=== PATIENT | male | born 2000 | race Caucasian/White ===

== ENCOUNTER 2023-09-12 02:59 | Observation (INO) ==
--- NOTE | 2023-09-12 03:08 | Emergency Department Note ---
History of Present Illness General Chief complaint: Abdominal Pain Stated complaint: SEVERE ABDOMINAL PAIN,VOMITING Time Seen by Provider: 09/12/23 03:01 History of Present Illness Maximum Pain Intensity: 6 This 23-year-old male presents ER complaint of nausea vomiting diarrhea and severe abdominal pain since 9 PM last night. Patient denies chest pain, dyspnea, fever, chills, cough, ingestion, flulike illness. He is not sure if he ate something bad. No other sick contacts. He states he is healthy with no active medical problems. Past Med/Surg History Social History Smoking Status: Never smoker Preferred Language: Lao Feels Safe at Home: Yes Review of Systems A total of 10 systems reviewed and were otherwise negative Physical Exam Vital Signs Vital Signs - 24 hr 09/12/23 03:03 09/12/23 04:00 09/12/23 05:24 Temperature 36.5 C Temperature Source Temporal Artery Scan Pulse Rate 104 H Pulse Rate [Finger] 73 89 Respiratory Rate 17 18 17 Respiratory Depth Normal Blood Pressure 128/77 Blood Pressure [Left Arm] 120/73 114/54 L Blood Pressure Mean 94 Blood Pressure Mean [Left Arm] 88 74 Pulse Oximetry 98 97 96 Oxygen Delivery Method Room Air Sepsis Recent Fever Within 48 Hours No Sepsis New/Unexplained Change in Mental Status No Sepsis Action Taken by Nursing No Action Required VITALS: Vitals are noted on the nurse's note and reviewed by myself. Vital signs stable. GENERAL: Pleasant gentleman ambulating without difficulties, in no acute distress, nondiaphoretic, well-developed well-nourished. SKIN: Capillary reflex less than 2 seconds. HEENT: Normocephalic. PERRLA. EOMI. Nares patent. Mucous membranes moist. Neck is supple without nuchal rigidity. HEART: Regular rate and rhythm LUNGS: Clear to auscultation bilaterally without wheezes, rales or rhonchi. No retractions or accessory muscle use. ABDOMEN: Positive bowel sounds x 4. Normal tympanic percussion. Soft, tender mid abdomen, without masses or organomegaly. Flor sign negative. No guarding or rebound tenderness. no CVA tenderness MUSCULOSKELETAL: No gross musculoskeletal defects. NEURO: Patient was alert and oriented to person place and time. No focal neurological deficits. Course Administered Medications Discontinued Medications Dicyclomine HCl (Dicyclomine Hcl 10 Mg/Ml 2 Ml Amp/Vial) 20 mg IM NOW ONE Stop: 09/12/23 03:07 Last Admin: 09/12/23 03:30 Dose: Not Given Documented By: WANDA Sodium Chloride (Nss) 1,000 mls @ 999 mls/hr IV .Q1H1M STA Stop: 09/12/23 04:01 Last Infusion: 09/12/23 05:12 Dose: Infused Documented By: Admin: 09/12/23 03:19 Dose: 999 mls/hr Documented By: WANDA Famotidine (Pepcid 20mg Iv Push) 20 mg in 5 mls @ 2.5 mls/min IV NOW STA Stop: 09/12/23 03:02 Last Admin: 09/12/23 03:17 Dose: 2.5 mls/min Documented By: WANDA Ioversol (Optiray 320 100ml) 100 ml IV ONCE ONE Stop: 09/12/23 03:57 Last Admin: 09/12/23 03:57 Dose: 90 ml Documented By: JONNA Ondansetron HCl (Ondansetron Inj 2 Mg/Ml 2 Ml Vial) 4 mg IV NOW STA Stop: 09/12/23 03:02 Last Admin: 09/12/23 03:18 Dose: 4 mg Documented By: WANDA Medical Decision Making Medical Records Attestation: I reviewed the patient's medical records. Home Medications Current Medication List: was personally reviewed by me Laboratory Data Attestation: I reviewed the patient's lab results. 09/12/23 03:14 09/12/23 03:14 Lab Results 09/12/23 09/12/23 Range/Units 03:14 03:20 WBC 26.88 H (4.8-10.8) K/ul RBC 5.86 (4.70-6.10) M/uL Hgb 17.4 (14.0-18.0) g/dl POC Hgb 18.4 H (14.0-18.0) g/dl Hct 50.3 (42.0-52.0) % POC Hct 54 H (42-52) % MCV 85.8 (80.0-100.0) fL MCH 29.7 (25.0-34.0) pg MCHC 34.6 (32.0-36.0) g/dL RDW Std Deviation 38.5 (36.4-46.3) fL RDW Coeff of Harjinder 12.2 (11.5-14.5) % Plt Count 194 (130-400) K/uL MPV 10.7 (9.4-12.4) fL Immature Gran % (Auto) 0.5 % Neut % (Auto) 94.5 % Lymph % (Auto) 1.1 % [place] % (Auto) 3.5 % Eos % (Auto) 0.1 % Baso % (Auto) 0.3 % Neut # (Auto) 25.42 H (1.40-6.50) K/uL Lymph # (Auto) 0.29 L (1.20-3.40) K/uL [place] # (Auto) 0.93 H (0.11-0.59) K/uL Eos # (Auto) 0.03 (0.00-0.50) K/uL Baso # (Auto) 0.08 (0.00-0.20) K/uL Immature Gran # (Auto) 0.13 (0.01-0.20) K/uL Toxic Vacuolation 1+ POC Sodium 140 (135-144) mmol/L Sodium 137 (136-145) mmol/L POC Potassium 4.0 (3.3-5.0) mmol/L Potassium 4.0 (3.5-5.1) mmol/L POC Chloride 98 L (101-112) mmol/L Chloride 98 (98-107) mmol/L Carbon Dioxide 28 (21-32) mmol/L POC Total CO2 29 (24-31) mmol/L Anion Gap 11 (3-11) POC Anion Gap 18.0 (16-25) mmol/L POC BUN 21 H (7-18) mg/dl BUN 21 (6-23) mg/dl Creatinine 1.18 (0.6-1.4) mg/dl POC Creatinine 1.1 (0.6-1.3) mg/dl Est Cr Clr Drug Dosing 66.9 ml/min Est GFR ( Amer) 99.5 ml/min Est GFR (Non-Af Amer) 85.9 ml/min BUN/Creatinine Ratio 17.8 (10-20) Glucose 144 H (70-99(Fasting)) mg/dl POC Glucose (other) 148 H (70-99) mg/dl Calcium 11.2 H (8.6-10.3) mg/dl POC Ioniz Calcium Jean Carlos 1.19 (1.12-1.32) mmol/l Total Bilirubin 1.2 H (0.2-1.0) mg/dl AST 32 (13-39) U/L ALT 23 (7-52) U/L Alkaline Phosphatase 128 H (34-104) U/L Total Protein 9.2 H (6.0-8.3) gm/dl Albumin 5.8 H (3.4-5.0) gm/dl Globulin 3.4 (2.5-4.0) gm/dl Albumin/Globulin Ratio 1.7 (0.9-2) Lipase 13 (11-82) U/L Adenovirus (PCR) Not Detected (NotDetected) B. pertussis DNA (PCR) Not Detected (NotDetected) B.parapertussis DNA PCR Not Detected (NotDetected) C. pneumoniae DNA (PCR) Not Detected (NotDetected) Coronavirus OC43 (PCR) Not Detected (NotDetected) Coronavirus HKU1 (PCR) Not Detected (NotDetected) Coronavirus 229E (PCR) Not Detected (NotDetected) SARS-CoV-2 (PCR) Not Detected (NotDetected) Coronavirus NL63 (PCR) Not Detected (NotDetected) Human Metapneumovir PCR Not Detected (NotDetected) Influenza Type A (PCR) Not Detected (NotDetected) Influenza Type B (PCR) Not Detected (NotDetected) M. pneumoniae (PCR) Not Detected (NotDetected) Parainfluenza 1 (PCR) Not Detected (NotDetected) Parainfluenza 2 (PCR) Not Detected (NotDetected) Parainfluenza 3 (PCR) Not Detected (NotDetected) Parainfluenza 4 (PCR) Not Detected (NotDetected) RSV (PCR) Not Detected (NotDetected) Entero/Rhino (PCR) Not Detected (NotDetected) Imaging Data Attestation: I personally reviewed and interpreted this imaging study as follows: Radiologist's Impression: Abdomen/Pelvis CT 09/12/23 03:01 Exam(s): CT ABDOMEN + PELVIS With Contrast IV Amt: 90 ML OPTIRAY 320 EXAM: CT Abdomen and Pelvis With Intravenous Contrast CLINICAL HISTORY: severe mid pain. TECHNIQUE: Axial computed tomography images of the abdomen and pelvis with intravenous contrast. CTDI is 6.58 mGy and DLP is 302.19 mGy-cm. Automated exposure control was utilized for the study. A dose lowering technique was utilized adhering to the principles of ALARA. CONTRAST: Patient received 90 ML OPTIRAY 320 of IV contrast COMPARISON: No relevant prior studies available. FINDINGS: Lung bases: Unremarkable. No mass. No consolidation. ABDOMEN: Liver: Unremarkable. No mass. Gallbladder and bile ducts: Unremarkable. No calcified stones. No ductal dilation. Pancreas: Unremarkable. No mass. No ductal dilation. Spleen: Unremarkable. No splenomegaly. Adrenals: Unremarkable. No mass. Kidneys and ureters: Unremarkable. No solid mass. No hydronephrosis. Stomach and bowel: Stomach is only mildly distended with fluid and gas. No gastric mucosal thickening. There is no definitive evidence for focal high-grade bowel obstruction with nonspecific fluid-filled, but not distended small bowel loops in the pelvis. No asymmetric bowel mucosal abnormality identified. No definite diverticulitis. PELVIS: Appendix: The appendix is suggested extending inferiorly and anteriorly from the cecum in the right anterior pelvis. The appendiceal tip is borderline prominent, measuring 7.8 mm in diameter with some internal material and gas. No mucosal wall thickening. The remainder of the appendix is normal in caliber with scattered gas. No definite periappendiceal fat stranding. Bladder: Unremarkable. No mass. Reproductive: Unremarkable as visualized. ABDOMEN and PELVIS: Intraperitoneal space: Unremarkable. No free air. No significant fluid collection. Bones/joints: No acute fracture. No dislocation. Soft tissues: Unremarkable. Vasculature: Unremarkable. No abdominal aortic aneurysm. Lymph nodes: Unremarkable. No enlarged lymph nodes. IMPRESSION: 1. There is no definitive evidence for focal high-grade bowel obstruction with nonspecific fluid-filled, but not distended small bowel loops in the pelvis. Suspect normal variation. No asymmetric bowel mucosal abnormality identified. No definite diverticulitis. No free intraperitoneal fluid or pneumoperitoneum. 2. The appendix is suggested extending inferiorly and anteriorly from the cecum in the right anterior pelvis. The appendiceal tip is borderline prominent, measuring 7.8 mm in diameter with some internal material and gas. No mucosal wall thickening. The remainder of the appendix is normal in caliber with scattered gas. No definite periappendiceal fat stranding. Suspect normal variation. However, please correlate with clinical and laboratory findings. Electronically signed by: Sumanth Catalan MD 09/12/23 05:04 AM [facility] Narrative Prior records/ancillary studies reviewed. Triage Nursing notes reviewed. Additional history obtained from nursing The patient's history was concerning for nausea, vomiting, diarrhea, and abdominal pain. Differential diagnosis: Etiologies such as gastroenteritis, food borne illness, infections, appendicitis, diverticulitis, inflammatory bowel disease, obstruction, GI bleed, biliary pathology, as well as others were entertained. Physical examination findings: As above. Abdominal examination revealed mid abdominal tenderness. Vital signs reviewed and revealed stable. ER treatment provided: IV hydration 1 L NSS. Zofran Bentyl and Pepcid were ordered On reassessment the patient felt better. Patient was tolerating p.o. intake. Diagnostics interpretation by me: The labs Independently Interpreted by myself revealed leukocytosis, mild hyperglycemia without DKA Imaging studies: CT as above Consultation: Surgery was consulted and did evaluate the patient. They would like to admit him for observation for possible appendicitis. This appears to be consistent with vomiting and diarrhea with concerns for possible appendicitis on imaging. Patient was feeling better. Surgery was consulted and did evaluate the patient. Surgery will admit the patient for observation but think the patient less likely has a appendicitis and more likely a GI illness. They did ask today and stool cultures and C. difficile study. These were added. Patient is agreeableof the treatment plan of admission. Patient was admitted to the surgical service. By the evaluation outlined above emergent etiologies such as diverticulitis, obstruction, cardiac sources, mesenteric ischemia, aortic pathology, inflammatory bowel disease, renal colic, PUD, biliary pathology, UTI, as well as others were deemed relatively unlikely. The pt informed about the findings as listed above. All questions were answered and pleased with the treatment. The chart was completed utilizing [employer] voice recognition software. Grammatical errors, random word insertions, pronoun errors, and incomplete sentences are an occassional consequence of this system due to software limitations, ambient noise, and hardware issues. Any formal questions or concerns about the content, text, or information contained within the body of this dictation should be directly addressed to the physician assistant wrestling coach for clarification. Impression & Plan Nausea, vomiting and diarrhea, Abdominal pain, acute, Leukocytosis Discharge Plan Visit Data Chief Complaint: Abdominal Pain Stated Complaint: SEVERE ABDOMINAL PAIN,VOMITING ED Provider: Ellen Valdez ED Midlevel Provider: Digna Wyatt Discharge Problem: Nausea, vomiting and diarrhea, Abdominal pain, acute, Leukocytosis Patient Disposition: Being Evaluated by Surgeon Condition: Good Discharge Instructions Activity Restrictions/Additional Instructions: Forms Stand Alone Forms: Work/School Release (ED), Important Visit Information Referrals Referrals: PCP,NO [Primary Care Provider] -
[2023-09-12] MEDS: FAMOTIDINE 20MG IV PUSH 20 MG/5 ML SYR IV STA (03:17)
[2023-09-12] MEDS: ONDANSETRON INJ 2 MG/ML 2 ML VIAL IV STA (03:18)
[2023-09-12] MEDS: SODIUM CHLORIDE 0.9% 1,000 ML IV STA (03:19)
[2023-09-12] MEDS: DICYCLOMINE HCL 10 MG/ML 2 ML AMP/VIAL IM ONE (03:22)
[2023-09-12 03:35] LABS: iSTAT Creatinine 1.1 mg/dl (0.6-1.3); iSTAT Hemoglobin 18.4 g/dl (14.0-18.0); iSTAT Ionized Calcium 1.19 mmol/l (1.12-1.32)
[2023-09-12 03:40] LABS: Hematocrit (blood only) 50.3 % (42.0-52.0); Hemoglobin 17.4 g/dl (14.0-18.0); Mean Corpuscular Hemoglobin 29.7 pg (25.0-34.0); Mean Corpuscular Hgb Conc 34.6 g/dL (32.0-36.0); Mean Corpuscular Volume 85.8 fL (80.0-100.0); Mean Platelet Volume 10.7 fL (9.4-12.4); Platelet Count 194 K/uL (130-400); RDW Coefficient of Variation 12.2 % (11.5-14.5); RDW Standard Deviation 38.5 fL (36.4-46.3); Red Blood Count 5.86 M/uL (4.70-6.10); White Blood Count 26.88 K/ul (4.8-10.8)
[2023-09-12 03:44] LABS: Albumin Globulin Ratio 1.7 (0.9-2); Albumin Level 5.8 gm/dl (3.4-5.0); BUN Creatinine Ratio 17.8 (10-20); Bilirubin,Total 1.2 mg/dl (0.2-1.0); Calcium 11.2 mg/dl (8.6-10.3); Creatinine Clr Calc Pharmacy 66.9 ml/min; Est GFR (African American) 99.5 ml/min; Est GFR (Non-African American) 85.9 ml/min; Globulin 3.4 gm/dl (2.5-4.0); Total Protein 9.2 gm/dl (6.0-8.3)
[2023-09-12] MEDS: OPTIRAY 320 100ml IV ONE (03:57)
[2023-09-12 03:59] LABS: Basophils # (auto) 0.08 K/uL (0.00-0.20); Basophils % (auto) 0.3 %; Eosinophils # (auto) 0.03 K/uL (0.00-0.50); Eosinophils % (auto) 0.1 %; Immature Granulocytes # (auto) 0.13 K/uL (0.01-0.20); Immature Granulocytes % (auto) 0.5 %; Lymphocytes # (auto) 0.29 K/uL (1.20-3.40); Lymphocytes % (auto) 1.1 %; Monocytes # (auto) 0.93 K/uL (0.11-0.59); Monocytes % (auto) 3.5 %; Neutrophils # (auto) 25.42 K/uL (1.40-6.50); Neutrophils % (auto) 94.5 %; Toxic Vacuolation 1+
[2023-09-12 04:30] LABS: Adenovirus PCR Not Detected (NotDetected); Bordetella parapertussis PCR Not Detected (NotDetected); Bordetella pertussis PCR Not Detected (NotDetected); Chlamydia pneumoniae PCR Not Detected (NotDetected); Coronavirus 229E PCR Not Detected (NotDetected); Coronavirus CoV-2 (COVID19)PCR Not Detected (NotDetected); Coronavirus HKU1 PCR Not Detected (NotDetected); Coronavirus NL63 PCR Not Detected (NotDetected); Coronavirus OC43PCR Not Detected (NotDetected); Human Metapneumovirus PCR Not Detected (NotDetected); Influenza A PCR Not Detected (NotDetected); Influenza B PCR Not Detected (NotDetected); Mycoplasma pneumoniae PCR Not Detected (NotDetected); Parainfluenza Virus 1 PCR Not Detected (NotDetected); Parainfluenza Virus 2 PCR Not Detected (NotDetected); Parainfluenza Virus 3 PCR Not Detected (NotDetected); Parainfluenza Virus 4 PCR Not Detected (NotDetected); Respiratory Syncytial VirusPCR Not Detected (NotDetected); Rhinovirus/Enterovirus PCR Not Detected (NotDetected)
--- NOTE | 2023-09-12 05:04 | CT Scan Report ---
Exam(s): CT ABDOMEN + PELVIS With Contrast IV Amt: 90 ML OPTIRAY 320 EXAM: CT Abdomen and Pelvis With Intravenous Contrast CLINICAL HISTORY: severe mid pain. TECHNIQUE: Axial computed tomography images of the abdomen and pelvis with intravenous contrast. CTDI is 6.58 mGy and DLP is 302.19 mGy-cm. Automated exposure control was utilized for the study. A dose lowering technique was utilized adhering to the principles of ALARA. CONTRAST: Patient received 90 ML OPTIRAY 320 of IV contrast COMPARISON: No relevant prior studies available. FINDINGS: Lung bases: Unremarkable. No mass. No consolidation. ABDOMEN: Liver: Unremarkable. No mass. Gallbladder and bile ducts: Unremarkable. No calcified stones. No ductal dilation. Pancreas: Unremarkable. No mass. No ductal dilation. Spleen: Unremarkable. No splenomegaly. Adrenals: Unremarkable. No mass. Kidneys and ureters: Unremarkable. No solid mass. No hydronephrosis. Stomach and bowel: Stomach is only mildly distended with fluid and gas. No gastric mucosal thickening. There is no definitive evidence for focal high-grade bowel obstruction with nonspecific fluid-filled, but not distended small bowel loops in the pelvis. No asymmetric bowel mucosal abnormality identified. No definite diverticulitis. PELVIS: Appendix: The appendix is suggested extending inferiorly and anteriorly from the cecum in the right anterior pelvis. The appendiceal tip is borderline prominent, measuring 7.8 mm in diameter with some internal material and gas. No mucosal wall thickening. The remainder of the appendix is normal in caliber with scattered gas. No definite periappendiceal fat stranding. Bladder: Unremarkable. No mass. Reproductive: Unremarkable as visualized. ABDOMEN and PELVIS: Intraperitoneal space: Unremarkable. No free air. No significant fluid collection. Bones/joints: No acute fracture. No dislocation. Soft tissues: Unremarkable. Vasculature: Unremarkable. No abdominal aortic aneurysm. Lymph nodes: Unremarkable. No enlarged lymph nodes. IMPRESSION: 1. There is no definitive evidence for focal high-grade bowel obstruction with nonspecific fluid-filled, but not distended small bowel loops in the pelvis. Suspect normal variation. No asymmetric bowel mucosal abnormality identified. No definite diverticulitis. No free intraperitoneal fluid or pneumoperitoneum. 2. The appendix is suggested extending inferiorly and anteriorly from the cecum in the right anterior pelvis. The appendiceal tip is borderline prominent, measuring 7.8 mm in diameter with some internal material and gas. No mucosal wall thickening. The remainder of the appendix is normal in caliber with scattered gas. No definite periappendiceal fat stranding. Suspect normal variation. However, please correlate with clinical and laboratory findings. Electronically signed by: Sumanth Catalan MD 09/12/23 05:04 AM
[2023-09-12] MEDS ORDERED: ONDANSETRON INJ 2 MG/ML 2 ML VIAL IV PRN (05:36)
--- NOTE | 2023-09-12 05:36 | History & Physical Report ---
Date of Service September 12, 2023 Assessment & Plan (1) Abdominal pain, acute: Plan: I discussed with the treating clinician the emergency department and the patient will be admitted/observed on the surgical service proceeding as follows: At the present time the patient does not have any abdominal pain and is only received Bentyl, Pepcid, and Zofran for symptomatic reliefhe has not required any other analgesics and his pain has all but resolved and his abdominal exam is benign Clinically, I suspect the patient merely has gastroenteritis which accounts for his previous abdominal pain along with his nausea, vomiting, and diarrhea However, due to the patient's leukocytosis and appendiceal findings on CT scan I feel it is in the best interest of the patient to observe him in the hospital for several hours to ensure he does not declare himself as an acute appendicitis N.p.o. status will be implemented IV fluids will be provided for hydration As there is no definite appendicitis we will withhold antibiotics at this time Will repeat labs later this morning Due to the patient's noted diarrhea we will order stool studies and act accordingly Antiemetics will be ordered Analgesics to be used sparingly as we do not want to mask any underlying pathology Will use SCDs for DVT prevention, no chemical means until it is ascertained whether or not the patient will require any procedural/surgical intervention He will be a level 1 full code History of Present Illness Chief Complaint: Abdominal pain Primary Care Provider: NO PCP This is a 23-year-old male who presented the emergency department secondary to abdominal pain that he has been having since approximately 9:30 PM on 09/10/2023. Patient notes that the pain is located just superior to his umbilicus/epigastric area. He notes that the pain is not radiating. He does note the pain was worse with certain movements and feels somewhat better when he was lying still. He had associated nausea and vomiting. He denies any fevers, shakes, or chills. The patient says he did eat a very large Easter dinner yesterday but no close contacts are ill with similar symptoms. He has never had prior abdominal surgeries before and denies any additional medical problems. Since arrival to hospital patient has had labs and imaging which independent reviewed. A CT scan of the abdomen pelvis showed no evidence of small bowel obstruction. The patient was noted to have a mildly distended stomach with fluid and gas and no gastric mucosal thickening. The appendix was noted to be extending inferiorly and anterior from the cecum in the right anterior pelvis. The appendiceal tip was noted to be borderline prominent measuring 7.8 cm with s ome internal material and gas and no mucosal wall thickening. The remainder the appendix appeared normal and there is no definite periappendiceal fat stranding and no definite appendicitis. Labs include a CBC her white blood cell count was elevated at 26.8. Hemoglobin was normal on hematocrit was normal as well. Platelet count was normal. Chemistry profile showed sodium and potassium were normal. His BUN and creatinine were both normal as well. The patient did have a bio fire checked and all viruses checked for were negative. In the emergency department the patient has received Bentyl for his abdominal discomfort. He is also received a dose of Zofran and Pepcid and his pain is markedly improved. Concerning past medical history he denies any medical problems Concerning past surgical history has never had surgery Concerning social history he does not smoke Past Med/Surg History Social History Smoking Status: Never smoker Hx Alcohol Use: Yes Hx Substance Use: No Preferred Language: Kazakh Communication Ability: Effective Sliver Machine Operator Required: No Beliefs That Will Affect Care: None Current Living Situation: Other Current Living Situation Comment: Roommates Other Information That Helps Us Care for You: No Feels Safe at Home: Yes Safety Concerns: Feels Safe At This Time Assistive Devices: None Review of Systems Constitutional: no fever and no chills Ear, Nose, Mouth, Throat: no hearing loss Respiratory: no cough and no dyspnea Cardiovascular: no chest pain Gastrointestinal: as per Subjective / HPI, + abdominal pain, + nausea, + vomiting and + diarrhea/loose stools Genitourinary: no dysuria Musculoskeletal: no back pain Integumentary: no rash Neurologic: no localized weakness Physical Exam Constitutional: WD/WN, vitals as above Eyes: no conjunctival abnormality ENMT: Ears: no external ear abnormality Neck: trachea midline Respiratory: normal respiratory effort; no respiratory distress and no labored breathing Cardiovascular: Rate/Rhythm: regular rate and regular rhythm Gastrointestinal (Abdomen): At the time of my exam the patient's abdomen is noted to be soft and nondistended. Bowel sounds are present. There is no tympany to percussion. At the time of my exam there is no pain noted with palpation in the epigastric area or any other area of his abdomen, specifically the right lower quadrant. There is no rebound tenderness or guarding Musculoskeletal: No calf tenderness Skin: no rashes Neurologic: moves all extremities Psychiatric: A+Ox3, euthymic affect Results & Data Results & Data Vital Signs (Past 12 Hours) Vital Signs Temp Pulse Pulse Resp BP BP Pulse Ox 09/12/23 05:24 89 17 114/54 L 96 09/12/23 04:00 73 18 120/73 97 09/12/23 03:03 36.5 C 104 H 17 128/77 98 O2 Del Method 09/12/23 05:24 09/12/23 04:00 09/12/23 03:03 Room Air Supervising Physician Co-Signing Physician Notes This case was discussed with the surgical PA. I agree with the assessment. PG Care Time/CCT Total # of Minutes Spent Total Time Spent with Patient: Total time spent is greater than 50% in coordination of care (as documented) at patient's floor/unit and/or counseling patient: Coding Level of Care Code 66647 INT INP/OBS CARE 3/75MIN Diagnoses Abdominal pain, acute R10.9
[2023-09-12 06:10] LABS: Appearance Urine Clear (Clear); Bacteria Urine Automated Negative (Negative); Bilirubin Urine Negative (Negative); Blood Urine Trace (Negative); Cast Urine Automated 0 /lpf (0-5); Color Urine Yellow; Glucose Urine UA Negative (Negative); Ketones Urine Negative (Negative); Leukocyte Esterase Urine Negative (Negative); Nitrite Urine Negative (Negative); Protein Urine Negative (Negative); RBC Urine Automated 0-4 /hpf (0-4); Specific Gravity Urine > 1.045 (1.000-1.030); Urobilinogen Urine Negative (Negative); WBC Urine Automated 0 /hpf (0-5); pH Urine 7.5 (4.5-7.5)
[2023-09-12] MEDS: SODIUM CHLORIDE 0.9% 1,000 ML IV SCH (06:17)
--- NOTE | 2023-09-12 09:32 | Surgery Progress Note ---
Date of Service September 12, 2023 Assessment & Plan (1) Nausea, vomiting and diarrhea: Plan: Pt here with abdominal pain, nausea/vomiting and diarrhea All symptoms are improved this AM and he is feeling well On exam abdomen is soft, non distended, and non tender. No RLQ ttp appreciated Will recheck labs at 3pm to see if WBC downtrending off abx Adv diet to full liquids and see how he fairs If diet tolerated, he continues to remain symptom free, and labs okay will consider dispo later today Plan I examined this patient with the surgical PA and I agree with the assessment. He was admitted with IV fluids, no antibiotics were started and the patient's symptoms have completely resolved. We will follow-up labs this afternoon to see if he will be appropriate for discharge. Admission and Anticipated Discharge Date Admission Date: September 12, 2023 Subjective Patient reports pain is much improved. No further nausea/vomiting. Diarrhea also improved. Physical Exam Physical Exam: awake/alert, no distress Gastrointestinal (Abdomen): Inspection/Auscultation: abdomen not distended Percussion/Palpation: abdomen soft; abdomen nontender Results & Data Vital Signs (Past 12 Hours) Vital Signs Temp Pulse Pulse Resp BP BP BP 09/12/23 07:17 99.0 F 98 H 16 114/65 09/12/23 06:40 83 18 94/56 L 09/12/23 05:57 81 17 98/61 L 09/12/23 05:24 89 17 114/54 L 09/12/23 04:00 73 18 120/73 09/12/23 03:03 97.7 F 104 H 17 128/77 Pulse Ox O2 Del Method 09/12/23 07:17 93 Room Air 09/12/23 06:40 97 09/12/23 05:57 96 09/12/23 05:24 96 09/12/23 04:00 97 09/12/23 03:03 98 Room Air PG Care Time/CCT Total # of Minutes Spent Total Time Spent with Patient: Total time spent is greater than 50% in coordination of care (as documented) at patient's floor/unit and/or counseling patient: Coding Level of Care Code 48916 SUB INP/OBS CARE 1/25MIN Diagnoses Nausea, vomiting and diarrhea R11.2; R19.7
[2023-09-12 15:18] LABS: BUN Creatinine Ratio 15.5 (10-20); Calcium 8.4 mg/dl (8.6-10.3); Creatinine Clr Calc Pharmacy 81.4 ml/min; Est GFR (African American) 126.1 ml/min; Est GFR (Non-African American) 108.8 ml/min; Potassium 3.6 mmol/L (3.5-5.1)
[2023-09-12 15:41] LABS: Basophils # (auto) 0.03 K/uL (0.00-0.20); Basophils % (auto) 0.2 %; Eosinophils # (auto) 0.01 K/uL (0.00-0.50); Eosinophils % (auto) 0.1 %; Hematocrit (blood only) 38.3 % (42.0-52.0); Immature Granulocytes % (auto) 0.5 %; Lymphocytes # (auto) 0.28 K/uL (1.20-3.40); Lymphocytes % (auto) 1.5 %; Mean Corpuscular Hemoglobin 29.3 pg (25.0-34.0); Mean Corpuscular Hgb Conc 33.9 g/dL (32.0-36.0); Mean Corpuscular Volume 86.3 fL (80.0-100.0); Mean Platelet Volume 10.7 fL (9.4-12.4); Monocytes # (auto) 0.66 K/uL (0.11-0.59); Monocytes % (auto) 3.4 %; Neutrophils # (auto) 18.14 K/uL (1.40-6.50); Neutrophils % (auto) 94.3 %; Platelet Count 159 K/uL (130-400); RDW Coefficient of Variation 12.6 % (11.5-14.5); RDW Standard Deviation 39.7 fL (36.4-46.3); Red Blood Count 4.44 M/uL (4.70-6.10); White Blood Count 19.22 K/ul (4.8-10.8)
[2023-09-12] MEDS ORDERED: ACETAMINOPHEN 1,000 MG/100 ML VIAL IV PRN (16:09)
[2023-09-12] MEDS ORDERED: PIPERACILLIN/TAZOBACTAM 4.5 GM in DEXTROSE 5% MINI-B 100 ML IV SCH (16:15)
[2023-09-12] MEDS: Patient's ALLERGY Info needs ENTERED SCH (16:40)
[2023-09-12] MEDS: ACETAMINOPHEN 1,000 MG/100 ML VIAL IV STA (16:49)
--- NOTE | 2023-09-12 19:39 | Communication Note ---
Date of Service: September 12, 2023 This patient was admitted earlier this morning due to abnormal CT scan at which time patient's appendix was noted to have slight dilatation without signs of appendicitis. He was admitted for observation due to leukocytosis. Since admission the patient's presenting abdominal pain has completely resolved. He did have repeat labs where he continues to have a leukocytosis although his white blood cell count has decreased from 26.8-19.2. Although the patient's white blood cell count has decreased he did begin spiking temperatures earlier today. His most recent febrile episode was at approximate 5:30 PM this evening. I visited with the patient at the bedside. At the present time he denies any abdominal pain. He has had his diet advanced to full liquids which he is tolerating although he does note he is having some loose bowel movements. I discussed with the nurse at bedside and the patient has had stool studies recently sent and we will await the results of these. In addition she notes that the patient did receive acetaminophen at approximately 4:45 PM this evening. His most recent vital signs at approximately 7:30 PM this evening re vealed that he is currently afebrile. The patient was also noted to be normotensive without tachycardia. It is noteworthy to mention that the patient informed me that he had an Easter gathering with family members and he did note that his mother told him today that she is having similar symptoms to what he is having although not nearly as severe. Will continue to monitor while he is hospitalized and await pending stool studies.
[2023-09-12 21:01] LABS: Adenovirus F 40/41 PCR Not Detected (NotDetected); Astrovirus PCR Not Detected (NotDetected); Campylobacter PCR Not Detected (NotDetected); Cryptosporidium PCR Not Detected (NotDetected); Cyclospora cayetanensis PCR Not Detected (NotDetected); Entamoeba histolytica PCR Not Detected (NotDetected); Enteroaggregative E.coli(EAEC) Not Detected (NotDetected); Enteropathogenic E.coli (EPEC) Not Detected (NotDetected); Enterotoxigenic E.coli (ETEC) Not Detected (NotDetected); Giardia lamblia PCR Not Detected (NotDetected); Plesiomonas shigelloides PCR Not Detected (NotDetected); Rotavirus A PCR Not Detected (NotDetected); Salmonella PCR Not Detected (NotDetected); Sapovirus PCR Not Detected (NotDetected); Shiga-like Toxin E.coli (STEC) Not Detected (NotDetected); Shigella/Enteroinvasive E.coli Not Detected (NotDetected); Vibrio cholerae PCR Not Detected (NotDetected); Vibrio species PCR Not Detected (NotDetected); Yersinia enterocolitica PCR Not Detected (NotDetected)
[2023-09-12 21:09] LABS: Norovirus GI/GII PCR DETECTED (NotDetected)
[2023-09-13 06:29] LABS: Basophils # (auto) 0.02 K/uL (0.00-0.20); Basophils % (auto) 0.2 %; Eosinophils # (auto) 0.07 K/uL (0.00-0.50); Eosinophils % (auto) 0.7 %; Hematocrit (blood only) 34.3 % (42.0-52.0); Hemoglobin 11.9 g/dl (14.0-18.0); Immature Granulocytes # (auto) 0.04 K/uL (0.01-0.20); Immature Granulocytes % (auto) 0.4 %; Lymphocytes # (auto) 0.61 K/uL (1.20-3.40); Lymphocytes % (auto) 5.8 %; Mean Corpuscular Hemoglobin 29.8 pg (25.0-34.0); Mean Corpuscular Hgb Conc 34.7 g/dL (32.0-36.0); Mean Platelet Volume 10.9 fL (9.4-12.4); Monocytes % (auto) 7.6 %; Neutrophils # (auto) 8.98 K/uL (1.40-6.50); Neutrophils % (auto) 85.3 %; Platelet Count 134 K/uL (130-400); RDW Coefficient of Variation 12.7 % (11.5-14.5); RDW Standard Deviation 40.2 fL (36.4-46.3); Red Blood Count 3.99 M/uL (4.70-6.10); White Blood Count 10.52 K/ul (4.8-10.8)
[2023-09-13 07:01] LABS: BUN Creatinine Ratio 11.6 (10-20); Calcium 8.2 mg/dl (8.6-10.3); Creatinine Clr Calc Pharmacy 91.8 ml/min; Est GFR (African American) 140.7 ml/min; Est GFR (Non-African American) 121.4 ml/min; Potassium 3.6 mmol/L (3.5-5.1)
--- NOTE | 2023-09-13 08:32 | Surgery Progress Note ---
<Statement entered by Luis Felipe Mcdonald DO - 09/14/23 13:03> This patient was seen and examined with the surgical PA. I agree with the plan Date of Service September 13, 2023 Assessment & Plan (1) Norovirus: Plan: Patient here with abdominal pain, n/v, diarrhea Stool studies yesterday reveal patient is + for norovirus WBC downtrended to 10. Last fever was 5:30pm yesterday No concerns for appendicitis at this time Will give patient full liquids, continue this for the next few days and slowly advance to bland diet and increase from there If afebrile remainder of the day he can possibly be discharged to home this evening Admission and Anticipated Discharge Date Admission Date: September 12, 2023 Subjective Patient feeling okay. Denies abdominal pain, but feels bloated. No nausea/vomiting. + diarrhea Physical Exam Physical Exam: awake/alert, no distress Gastrointestinal (Abdomen): Percussion/Palpation: abdomen soft Results & Data Vital Signs (Past 12 Hours) Vital Signs Temp Pulse Resp BP Pulse Ox O2 Del Method 09/13/23 07:26 98.8 F 63 18 100/60 95 Room Air 09/13/23 01:25 99.0 F PG Care Time/CCT Total # of Minutes Spent Total Time Spent with Patient: Total time spent is greater than 50% in coordination of care (as documented) at patient's floor/unit and/or counseling patient: Coding Level of Care Code 22654 SUB INP/OBS CARE 07/07MIN Diagnoses Norovirus A08.11
--- NOTE | 2023-09-16 19:04 | Discharge Summary ---
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 Patient notes that the pain is located just superior to his umbilicus/epigastric area. He notes that the pain is not radiating. He does note the pain was worse with certain movements and feels somewhat better when he was lying still. He had associated nausea and vomiting. He denies any fevers, shakes, or chills. The patient says he did eat a very large Easter dinner yesterday but no close contacts are ill with similar symptoms. He has never had prior abdominal surgeries before and denies any additional medical problems. Since arrival to hospital patient has had labs and imaging which independent reviewed. A CT scan of the abdomen pelvis showed no evidence of small bowel obstruction. The patient was noted to have a mildly distended stomach with fluid and gas and no gastric mucosal thickening. The appendix was noted to be extending inferiorly and anterior from the cecum in the right anterior pelvis. The appendiceal tip was noted to be borderline prominent measuring 7.8 cm with some internal material and gas and no mucosal wall thickening. The remainder the appendix appeared normal and there is no definite periappendiceal fat stranding and no definite appendicitis. Labs include a CBC her white blood cell count was elevated at 26.8. Hemoglobin was normal on hematocrit was normal as well. Platelet count was normal. Chemistry profile showed sodium and potassium were normal. His BUN and creatinine were both normal as well. The patient did have a bio fire checked and all viruses checked for were negative. In the emergency department the patient has received Bentyl for his abdominal discomfort. He is also received a dose of Zofran and Pepcid and his pain is markedly improved. Concerning past medical history he denies any medical problems Concerning past surgical history has never had surgery Concerning social history he does not smoke Principal Diagnosis Norvo Virus Discharge Exam awake/alert, no distress Respiratory normal respiratory effort; no respiratory distress and no labored breathing Cardiovascular Rate/Rhythm: regular rate Gastrointestinal (Abdomen) Inspection/Auscultation: abdomen not distended Percussion/Palpation: abdomen soft; abdomen nontender Discharge Data Allergies Allergy/AdvReac Type Severity Reaction Status Date / Time No Known Allergies Allergy Unverified 09/12/23 16:41 Consultations 09/12/23 05:27 ED Decision to Admit Stat Ordered Studies 09/12/23 03:01 CT abd pelvis IV con only Stat Hospital Course (1) Norovirus: Patient presented to the [facility] ER 09/12/23 with complaint of nausea, vomiting, diarrhea (see admitting HPI for details). A CT scan showed a mildly dilated appendix and he had an elevated WBC so he was admitted to the hospital for IV fluids and monitoring. After receiving some IV fluids he began to report resolution of abdominal symptoms. He was given a diet. His stool studies reveal the patient was positive for norovirus. His WBC downtrended during his stay and his vital signs stabilized and he remained afebrile. His diet was slowly advance throughout the day 09/13/23 which he was able to tolerate. He was deemed stable for discharge and given return precautions and instructed to follow up with his PCP. Total Time Total Time Spent Total Time Spent (In Minutes): 20 Discharge Plan Discharge Items Patient Disposition: Home - Self-Care Reason For Visit: ABDOMINAL PAIN Discharge Diagnosis: abdominal pain, vomiting, diarrhea Condition on Discharge: Good Activity: Per Instructions section Lifting: Gradually increase as tolerated Bathing: No limitations Exercise/Sports: Gradually increase as tolerated Driving/Machine Use: Resume 1 day after discharge Non-emergency contact: Primary Care Provider Call non-emergency contact if: you have a fever and your temperature is above 101.5 Follow-up/Referrals: PCP,NO [Primary Care Provider] - Diet: Full liquid Addtl Attending Provider Instructions: Continue on a full liquid diet over the next 24-48 hours, then may slowly reintroduce foods as you tolerate. It may be best to stick with bland food to start Pending Studies at Discharge: No Stand-Alone Forms: [employer], Smoking Cessation Medications and DC Order Discharge Orders: Discharge Order (Routine); Ordered 09/13/23 Ordered By: Turner Lyons/Other Patient Handouts: Soft Victoria Diet Dc, Full Liquid Diet Dc, Understanding Norovirus, ED Diet, Victoria (Adult) Admission Data Admit Date/Time: 09/12/23 05:39 Attending Provider: Luis Felipe Mcdonald Admit Provider: Luis Felipe Mcdonald Primary Care Provider: PCP,NO Other Interventions: Discharge Summary Assessment (RN) Last Done: 09/13/23 16:36 Supervising Physician Co-Signing Physician Notes This case was discussed with the surgical PA. I agree with the assessment. Coding Level of Care Code 80858 IN/OBS DISCH 30 MIN/LESS Diagnoses Norovirus A08.11
== END 2023-09-13 18:28 | disposition home or self-care (01) | DRG 392 ==
LOC: ED 02:59 → 3E 05:39 → INTOOBSV 05:39 → 3E 07:21